=== PATIENT | male | born 1965 | race Caucasian/White ===

== ENCOUNTER → 2016-10-08 | Day surgery (SDC) | payer OTHER | END | disposition home or self-care (01) | LOC: SDC 15:01 | DX: C67.9 Malignant neoplasm of bladder, unspecified (principal); N48.0 Leukoplakia of penis; N35.9 Urethral stricture, unspecified; N40.0 Benign prostatic hyperplasia without lower urinary tract symptoms; N32.3 Diverticulum of bladder; M19.90 Unspecified osteoarthritis, unspecified site; F17.210 Nicotine dependence, cigarettes, uncomplicated; Z88.8 Allergy status to other drugs, medicaments and biological substances; Z79.899 Other long term (current) drug therapy; Z98.890 Other specified postprocedural states | CPT/HCPCS: C1758; J1580; J1885; J2704; Q9967 ==

== ENCOUNTER → 2017-01-04 | Day surgery (SDC) | payer OTHER | END | disposition home or self-care (01) | LOC: SDC 07:35 | DX: N30.20 Other chronic cystitis without hematuria (principal); N48.0 Leukoplakia of penis; N35.9 Urethral stricture, unspecified; F17.210 Nicotine dependence, cigarettes, uncomplicated; Z88.8 Allergy status to other drugs, medicaments and biological substances; Z98.890 Other specified postprocedural states | CPT/HCPCS: C1758; J1885; J2704; J9280; Q9967 ==